=== PATIENT | female | born 1960 | race Caucasian/White ===

== ENCOUNTER 2020-03-24 14:22 | Outpatient (CLI) | payer OTHER, SELFPAY ==
--- NOTE | 2020-03-24 14:23 | MM_ITS ---
WS: [id number] BILATERAL SCREENING DIGITAL MAMMOGRAM WITH CAD HISTORY: SCREENING COMPARISON: 12/25/2018, 12/13/2018, 02/23/2017 Bilateral CC and MLO views submitted. Computer aided detection analyzed. Breast composition: There are scattered areas of fibroglandular density. No suspicious masses, microc alcifications or architectural distortion. The nodular asymmetry in the central RIGHT breast which hickey s been previously described is stable. MM/[id number] IMPRESSION: BI-RADS: 2-Benign FOLLOW UP: 1 Year Follow-up
== END 2020-03-24 14:23 | disposition home or self-care (01) ==
LOC: RADSHAW 14:22
PROVIDERS: PCP Family Medicine; Visit Provider Family Medicine
DX: Z12.31 Encounter for screening mammogram for malignant neoplasm of breast (principal)
CPT/HCPCS: 77067

== ENCOUNTER 2020-06-19 08:46 | Outpatient (CLI) | payer OTHER, SELFPAY ==
--- NOTE | 2020-06-19 08:58 | MM_ITS ---
WS: [id number] LEFT DIGITAL MAMMOGRAPHY WITH CAD CLINICAL INFORMATION: PAIN IN LEFT BREAST COMPARISON: March 24, 2020 and TECHNIQUE: 4 views of the left breast were obtained. FINDINGS: Scattered fibroglandular densities of the left breast. Palpable marker upper outer left breast. No de finite underlying palpable abnormalities. Ultrasound is pending of the palpable area. No other signif icant interval changes from previous. ULTRASOUND BREAST LEFT TECHNIQUE: Ultrasound left breast focused area of concern. CLINICAL INFORMATION: PAIN IN LEFT BREAST COMPARISON: None. FINDINGS: Ultrasound left breast performed from the 11 to 1:00 position. Dense underlying parenchymal tissue. N o suspicious cystic or solid lesions. No lesions to target for biopsy. Recommend return to annual scr eening mammography. MM/[id number] IMPRESSION: BI-RADS: 2-Benign FOLLOW UP: 1 Year Follow-up Recommend return to annual screening mammography.
== END 2020-06-19 08:47 | disposition home or self-care (01) ==
LOC: RADSHAW 08:48
PROVIDERS: PCP Family Medicine; Visit Provider Family Medicine
DX: N64.4 Mastodynia (principal)
CPT/HCPCS: 76642; 77065

== ENCOUNTER 2021-08-20 10:02 | Outpatient (CLI) | payer MEDICARE, SELFPAY ==
--- NOTE | 2021-08-20 10:17 | MM_ITS ---
WS: [id number] Exam: [id number] Date/Time of Exam: 08/20/2021 10:17 AM Reason For Exam: BREAST PAIN LEFT VIEWS: MLO, CC, and ML views both breasts. Comparison made with prior exam of 09/08/2011, 02/23/2017 and 03/24/2020. Findings: There was no sign of mass, architectural distortion or suspicious calcification in either breast. Sc attered fibroglandular densities MM/[id number] Impression: BI-RADS: 2-Benign FOLLOW-UP: 1 Year Follow-up This mammogram was also analyzed by the Computer Aided Detection System [employer].
== END 2021-08-20 10:03 | disposition home or self-care (01) ==
LOC: RADSHAW 10:08
PROVIDERS: PCP Family Medicine; Visit Provider Registered Nurse
DX: N64.4 Mastodynia (principal)
CPT/HCPCS: 77066